=== PATIENT | female | born 1960 | race Caucasian/White ===

== ENCOUNTER 2018-02-27 13:47 | Emergency (ER) | payer OTHER ==
[2018-02-27 13:52] VITALS: BP 119/72; PULSE 88; TEMP 98.7; BMI 27.6
--- NOTE | 2018-02-27 14:26 | PDOC ---
History of Present Illness - General Chief Complaint: Pain Stated Complaint: RIGHT ARM PAIN /FELL - History of Present Illness Initial Comments: 58-year-old female presents for evaluation of right shoulder pain after a mechanical fall today at home. She has a significant past medical history of adenocarcinoma of the liver diabetes hypertension and dyslipidemia. As well as anxiety. She points to the lateral aspect of her right upper arm as the area of her discomfort. He no post injury nausea vomiting or visual changes. She did not hit her head. 02/27/18 14:24 Past History - Past Medical History Allergies/Adverse Reactions: Allergies Allergy/AdvReac Type Severity Reaction Status Date / Time No Known Allergies Allergy Verified 02/27/18 13:52 Home Medications: Ambulatory Orders Alprazolam [Xanax] 0.5 mg PO DAILY 02/27/18 Atorvastatin Ca [Lipitor] 20 mg NR DAILY 02/27/18 Canagliflozin [Invokana] 100 mg PO ASDIR 02/27/18 Dulaglutide [Trulicity] 1.5 mg SQ ASDIR 02/27/18 Mesalamine [Apriso] 0.375 gm PO ASDIR 02/27/18 Pioglitazone HCl [Actos] 30 mg PO ASDIR 02/27/18 Prochlorperazine Maleate [Compazine] 10 mg PO PRN 02/27/18 Spironolactone [Aldactone] 50 mg PO DAILY 02/27/18 - Suicide/Smoking/Psychosocial Hx Smoking History: Never smoked Have you smoked in the past 12 months: No Information on smoking cessation initiated: No Hx Alcohol Use: No Drug/Substance Use Hx: No Review of Systems - Review of Systems Musculoskeletal: Yes: See HPI, Joint Pain All Other Systems: Reviewed and Negative *Physical Exam - Vital Signs Last Vital Signs Temp Pulse Resp BP Pulse Ox 98.7 F 88 16 119/72 100 02/27/18 13:50 02/27/18 13:50 02/27/18 13:50 02/27/18 13:50 02/27/18 13:50 - Physical Exam Comments: Right shoulder skin color and temperature are normal. Range of motion is decreased. She has tenderness about the lateral aspect of the right upper arm. Right upper arm compartments are soft and nontender. She has no gross sensorimotor deficits. She is full nonpainful range of motion of the elbow in all planes as well as the wrist. 02/27/18 14:25 ED Treatment Course - RADIOLOGY Radiology Studies Ordered: Category Date Time Status SHOULDER-RIGHT [RAD] Stat Radiology 02/27/18 14:24 Ordered Medical Decision Making - Medical Decision Making By cortical fracture of the right surgical neck of humerus 02/27/18 14:43 *DC/Admit/Observation/Transfer Diagnosis at time of Disposition: Fracture of surgical neck of humerus - Discharge Dispostion Disposition: HOME Condition at time of disposition: Stable Decision to Admit order: No - Referrals Referrals: Bunny Alexander I [Primary Care Provider] - Kb Aranda MD [Staff Physician] - - Patient Instructions Printed Discharge Instructions: DI for Humeral Fracture Additional Instructions: Return to the emergency room should symptoms worsen or go unresolved. Follow-up with orthopedics in 2-3 days for further evaluation and treatment options. Keep the sling in place while at home it's probably best to sleep in a recliner chair. He may remove the sling for hygiene and to do gentle range of motion of your elbow. You may continue with Motrin if clear by her oncologist for pain control. - Post Discharge Activity
== END 2018-02-27 15:12 | disposition home or self-care (01) ==
LOC: JERFT 13:47
DX: S42.214A Unspecified nondisplaced fracture of surgical neck of right humerus, initial encounter for closed fracture (principal); W19.XXXA Unspecified fall, initial encounter; Y93.89 Activity, other specified; Y92.018 Other place in single-family (private) house as the place of occurrence of the external cause; Y99.8 Other external cause status; I10 Essential (primary) hypertension; E78.00 Pure hypercholesterolemia, unspecified; E11.9 Type 2 diabetes mellitus without complications; Z79.84 Long term (current) use of oral hypoglycemic drugs; Z85.05 Personal history of malignant neoplasm of liver
CPT/HCPCS: 73030-TC-RT-FY; 99281-25

== ENCOUNTER 2018-07-18 21:11 | Emergency (ER) | payer OTHER ==
[2018-07-18 21:29] VITALS: BMI 27.1
--- NOTE | 2018-07-18 21:41 | PDOC ---
History of Present Illness - General Chief Complaint: Syncope/Near Syncope Time Seen by Provider: 07/18/18 21:31 History Source: Patient Exam Limitations: No Limitations - History of Present Illness Initial Comments: 07/18/18 21:31 58 YOF with h/o metastatic liver adenocarcinoma with port in place RUCW, last chemo was in the beginning of June, HTN, HLD, and NIDDM, who p/w pre- syncopal episode at home this afternoon in the setting of worsening malaise, generalized weakness, JEAN, jaundice, constipation, dark tarry stool, and abdominal distention/discomfort for the past week. The notes the patient was climbing stairs at home this evening, became SOB after only 3 steps , and at the top of the steps she became very lightheaded, woozy, imbalanced, and the had to "slap her awake." She feels cold but denies fever, no vomiting, diarrhea, grossly bloody stool, altered mental status, or other symptoms. Gets all of her care at [facility] normally, last saw her doctors last week before the onset of these symptoms. On discussion with the patient and family, she [facility] that she wants to be DNR/DNI. They specify the patient would not want CPR, intubation, tracheostomy, chest tube, CVC, or other serious interventions. She would accept some treatments like blood transfusion and antibiotics. Past History - Past Medical History Allergies/Adverse Reactions: Allergies Allergy/AdvReac Type Severity Reaction Status Date / Time No Known Allergies Allergy Verified 07/18/18 21:29 Home Medications: Ambulatory Orders Alprazolam [Xanax] 0.5 mg PO DAILY 02/27/18 Atorvastatin Ca [Lipitor] 20 mg NR DAILY 02/27/18 Canagliflozin [Invokana] 100 mg PO ASDIR 02/27/18 Dulaglutide [Trulicity] 1.5 mg SQ ASDIR 02/27/18 Mesalamine [Apriso] 0.375 gm PO ASDIR 02/27/18 Pioglitazone HCl [Actos] 30 mg PO ASDIR 02/27/18 Prochlorperazine Maleate [Compazine] 10 mg PO PRN 02/27/18 Spironolactone [Aldactone] 50 mg PO DAILY 02/27/18 - Suicide/Smoking/Psychosocial Hx Smoking History: Never smoked Have you smoked in the past 12 months: No Information on smoking cessation initiated: No Hx Alcohol Use: No Drug/Substance Use Hx: No Review of Systems - Review of Systems Able to Perform ROS?: Yes Comments:: 07/18/18 21:35 GEN: chills, malaise, generalized weakness, decreased appetite, no fever, or weight change HEENT: no ear pain, sore throat, vision change, or eye pain CV: pre-syncope, lightheadedness, no chest pain, palpitations, or edema RESP: SOB, no cough, or wheezing GI: abdominal discomfort, constipation, black tarry stool, nausea, vomiting, diarrhea, white or bloody stool : no dysuria, hematuria, incontinence, retention, bleeding, or discharge MSK: no neck/back pain, muscle weakness/pain, or joint swelling/pain NEURO: no headache, seizure, vertigo, numbness, tingling, or focal weakness PSYCH: no substance use, no behavior change SKIN: jaundice, no rash ROS otherwise negative except as noted in HPI *Physical Exam - Vital Signs Last Vital Signs Temp Pulse Resp BP Pulse Ox 96.2 F L 89 15 98/64 98 07/18/18 21:11 07/18/18 21:11 07/18/18 21:11 07/18/18 21:11 07/18/18 21:11 - Physical Exam Comments: 07/18/18 22:29 GENERAL: chronically ill-appearing, A/Ox4, no distress, answers questions appropriately HEENT: moderate scleral icterus, moderate jaundice diffusely, PERRLA, EOMI, moist mucous membranes, hair loss noted NECK/BACK: no midline ttp, no spinal stepoff or deformity, no hematoma, full ROM , neck supple CHEST WALL: power-port in place RUCW CARDIOVASCULAR: regular rate/rhythm, normal S1S2, no MGR, strong peripheral pulses, capillary refill 5 seconds, extremities are cool LUNGS/RESPIRATORY: no respiratory distress, CTAB GI/ABDOMEN: mildly distended, symmetric [id number], normoactive BS, no focal ttp, no midline pulsatile masses RECTAL: small external hemorrhoid which is not thrombosed, small amount of black tarry stool in the rectal vault : no CVA tenderness EXTREMITIES: no muscle atrophy, no acute deformity, mild BLE non-pitting edema SKIN: warm and dry, no pallor, no rash, no skin breakdown, no cuts, no lesions NEUROLOGICAL: no asterixis, GCS 15, CN II-XII grossly intact, 5/5 strength proximally and distally, no facial droop Moderate Sedation - Procedure Monitoring Vital Signs: Procedure Monitoring Vital Signs Temperature 96.2 F L 07/18/18 21:11 Pulse Rate 89 07/18/18 21:11 Respiratory Rate 15 07/18/18 21:11 Blood Pressure 98/64 07/18/18 21:11 O2 Sat by Pulse Oximetry (%) 98 07/18/18 21:11 ED Treatment Course - LABORATORY CBC & Chemistry Diagram: 07/18/18 22:46 07/18/18 22:46 Medical Decision Making - Medical Decision Making 07/18/18 21:34 Presyncope: Adult female Pt p/w abrupt transient near-LOC with, followed by spontaneous recovery, consistent with presyncope. Initial Vital Signs Temp Pulse Resp BP Pulse Ox 96.2 F L 89 15 98/64 98 07/18/18 21:11 07/18/18 21:11 07/18/18 21:11 07/18/18 21:11 07/18/18 21:11 Rectal temp is 94.3 Exam: As noted in Physical Exam section. DDX IBNLT: sepsis (most likely UTI or PNA), UGIB, anemia, heart failure, ACS, PE , etc. W/U ordered: EKG CXR Sepsis Order Set FOBT TX ordered: gentle IVF, O2, Antonio hugger EKG: Reviewed; results as noted in ECG Review section. CXR: Nothing acute The patient and family wish to fill out DNR/DNI paperwork. The patient is of sound mental status and has decision making capacity. After long discussion with patient and family, we fill out DNR/DNI paperwork. The paperwork also specifies she does not want I am placing an order for DNR code status. Laboratory Tests 07/18/18 07/18/18 07/18/18 22:05 22:44 22:46 WBC 18.5 H RBC 2.19 L Hgb 6.3 L* Hct 20.0 L MCV 91.2 MCH 28.7 MCHC 31.5 L RDW 18.6 H Plt Count 286 MPV 8.4 Absolute Neuts (auto) 16.5 H Neutrophils % 88.9 H Neutrophils % (Manual) 89.0 H Band Neutrophils % 0.0 Lymphocytes % 6.8 L Lymphocytes % (Manual) 3.0 L Monocytes % 3.6 L Monocytes % (Manual) 4 Eosinophils % 0.1 Eosinophils % (Manual) 0.0 Basophils % 0.6 Basophils % (Manual) 0.0 Myelocytes % (Man) 2 Nucleated RBC % 1 H Metamyelocytes 2 Hypochromia 2+ Microcytosis 2+ PT with INR INR PTT (Actin FS) VBG pH POC VBG pCO2 POC VBG pO2 Mixed VBG HCO3 Sodium Potassium Chloride Carbon Dioxide Anion Gap BUN Creatinine Creat Clearance w eGFR Random Glucose Lactic Acid 5.3 H* Calcium Phosphorus Magnesium Total Bilirubin AST ALT Alkaline Phosphatase Creatine Kinase CK-MB (CK-2) Troponin I B-Natriuretic Peptide Total Protein Albumin Lipase Urine Color Urine Appearance Urine pH Ur Specific [place] Urine Protein Urine Glucose (UA) Urine Ketones Urine Blood Urine Nitrite Urine Bilirubin Urine Urobilinogen Ur Leukocyte Esterase Urine WBC (Auto) Urine RBC (Auto) Urine Mucus Stool Occult Blood Positive Influenza A (Rapid) Influenza B (Rapid) Blood Type Antibody Screen Crossmatch 07/18/18 07/18/18 07/18/18 22:46 22:46 22:46 WBC RBC Hgb Hct MCV MCH MCHC RDW Plt Count MPV Absolute Neuts (auto) Neutrophils % Neutrophils % (Manual) Band Neutrophils % Lymphocytes % Lymphocytes % (Manual) Monocytes % Monocytes % (Manual) Eosinophils % Eosinophils % (Manual) Basophils % Basophils % (Manual) Myelocytes % (Man) Nucleated RBC % Metamyelocytes Hypochromia Microcytosis PT with INR 34.00 H INR 2.85 H PTT (Actin FS) 32.0 VBG pH 7.21 L* POC VBG pCO2 32.5 L POC VBG pO2 23.7 L Mixed VBG HCO3 12.4 L* Sodium 120 L Potassium 5.9 H Chloride 87 L Carbon Dioxide 13 L Anion Gap 20 H BUN 158 H* Creatinine 6.2 H Creat Clearance w eGFR 6.98 Random Glucose 313 H* Lactic Acid Calcium 8.0 L Phosphorus Magnesium Total Bilirubin 7.5 H AST 959 H ALT 295 H Alkaline Phosphatase > 1000 H Creatine Kinase 279 H CK-MB (CK-2) 3.4 Troponin I B-Natriuretic Peptide Total Protein 5.8 L Albumin 1.5 L Lipase Urine Color Urine Appearance Urine pH Ur Specific [place] Urine Protein Urine Glucose (UA) Urine Ketones Urine Blood Urine Nitrite Urine Bilirubin Urine Urobilinogen Ur Leukocyte Esterase Urine WBC (Auto) Urine RBC (Auto) Urine Mucus Stool Occult Blood Influenza A (Rapid) Influenza B (Rapid) Blood Type Antibody Screen Crossmatch 07/18/18 07/18/18 07/18/18 22:46 22:46 22:46 WBC RBC Hgb Hct MCV MCH MCHC RDW Plt Count MPV Absolute Neuts (auto) Neutrophils % Neutrophils % (Manual) Band Neutrophils % Lymphocytes % Lymphocytes % (Manual) Monocytes % Monocytes % (Manual) Eosinophils % Eosinophils % (Manual) Basophils % Basophils % (Manual) Myelocytes % (Man) Nucleated RBC % Metamyelocytes Hypochromia Microcytosis PT with INR INR PTT (Actin FS) VBG pH POC VBG pCO2 POC VBG pO2 Mixed VBG HCO3 Sodium Potassium Chloride Carbon Dioxide Anion Gap BUN Creatinine Creat Clearance w eGFR Random Glucose Lactic Acid Calcium Phosphorus 7.0 H Magnesium 2.8 H Total Bilirubin AST ALT Alkaline Phosphatase Creatine Kinase CK-MB (CK-2) Troponin I < 0.02 B-Natriuretic Peptide Total Protein Albumin Lipase Urine Color Urine Appearance Urine pH Ur Specific [place] Urine Protein Urine Glucose (UA) Urine Ketones Urine Blood Urine Nitrite Urine Bilirubin Urine Urobilinogen Ur Leukocyte Esterase Urine WBC (Auto) Urine RBC (Auto) Urine Mucus Stool Occult Blood Influenza A (Rapid) Influenza B (Rapid) Blood Type O POSITIVE Antibody Screen Negative Crossmatch See Detail 07/18/18 07/18/18 07/18/18 22:46 22:46 22:46 WBC RBC Hgb Hct MCV MCH MCHC RDW Plt Count MPV Absolute Neuts (auto) Neutrophils % Neutrophils % (Manual) Band Neutrophils % Lymphocytes % Lymphocytes % (Manual) Monocytes % Monocytes % (Manual) Eosinophils % Eosinophils % (Manual) Basophils % Basophils % (Manual) Myelocytes % (Man) Nucleated RBC % Metamyelocytes Hypochromia Microcytosis PT with INR INR PTT (Actin FS) VBG pH POC VBG pCO2 POC VBG pO2 Mixed VBG HCO3 Sodium Potassium Chloride Carbon Dioxide Anion Gap BUN Creatinine Creat Clearance w eGFR Random Glucose Lactic Acid Calcium Phosphorus Magnesium Total Bilirubin AST ALT Alkaline Phosphatase Creatine Kinase CK-MB (CK-2) 3.2 Troponin I B-Natriuretic Peptide 798.1 H Total Protein Albumin Lipase 221 Urine Color Urine Appearance Urine pH Ur Specific [place] Urine Protein Urine Glucose (UA) Urine Ketones Urine Blood Urine Nitrite Urine Bilirubin Urine Urobilinogen Ur Leukocyte Esterase Urine WBC (Auto) Urine RBC (Auto) Urine Mucus Stool Occult Blood Influenza A (Rapid) Influenza B (Rapid) Blood Type Antibody Screen Crossmatch 07/18/18 07/19/18 23:30 00:10 WBC RBC Hgb Hct MCV MCH MCHC RDW Plt Count MPV Absolute Neuts (auto) Neutrophils % Neutrophils % (Manual) Band Neutrophils % Lymphocytes % Lymphocytes % (Manual) Monocytes % Monocytes % (Manual) Eosinophils % Eosinophils % (Manual) Basophils % Basophils % (Manual) Myelocytes % (Man) Nucleated RBC % Metamyelocytes Hypochromia Microcytosis PT with INR INR PTT (Actin FS) VBG pH POC VBG pCO2 POC VBG pO2 Mixed VBG HCO3 Sodium Potassium Chloride Carbon Dioxide Anion Gap BUN Creatinine Creat Clearance w eGFR Random Glucose Lactic Acid Calcium Phosphorus Magnesium Total Bilirubin AST ALT Alkaline Phosphatase Creatine Kinase CK-MB (CK-2) Troponin I B-Natriuretic Peptide Total Protein Albumin Lipase Urine Color Michelle Urine Appearance Turbid Urine pH 5.0 Ur Specific [place] 1.012 Urine Protein 2+ H Urine Glucose (UA) 3+ H Urine Ketones Negative Urine Blood 3+ H Urine Nitrite Negative Urine Bilirubin Negative Urine Urobilinogen Negative Ur Leukocyte Esterase Trace Urine WBC (Auto) 128 Urine RBC (Auto) 398 Urine Mucus Rare Stool Occult Blood Influenza A (Rapid) Negative Influenza B (Rapid) Negative Blood Type Antibody Screen Crossmatch Reassessment: Patient states has some right sided abdominal pain. 07/19/18 00:53 I have placed orders for another 2 mg Morphine (patient in pain again). Also have placed orders for D50 1 amp, insulin, and bicarb for hyperkalemia. A second 500cc NS bag is running; patient's pressure is 84/52. 07/19/18 01:09 I spoke with ICU triage fellow Roxana Coleman, [phone]. He will contact their stepdown unit and see if there are beds. We will continue to resuscitate and give the pRBCs. I have called blood bank to ensure order is being processed. 07/19/18 01:20 I spoke again with Dr. Coleman. Stepdown unit accepts in transfer to attending Rita Mcelroy Patient will got to [address] Step[address] unit. 07/19/18 03:03 Blood is transfusing, Chan has been placed, no UOP from Chan, position verified with [facility]. *DC/Admit/Observation/Transfer Diagnosis at time of Disposition: Severe sepsis, Hyperkalemia, Hyponatremia, Metastatic cancer to liver GI bleed Qualifiers: GI bleed type/associated pathology: melena Qualified Code(s): K92.1 - Melena Anemia Qualifiers: Anemia type: unspecified type Qualified Code(s): D64.9 - Anemia, unspecified - Discharge Dispostion Disposition: TRANSFER ACUTE CARE/OTHER HOSP Condition at time of disposition: Guarded - Referrals Referrals: Bunny Alexander I [Primary Care Provider] - - Patient Instructions - Post Discharge Activity - Transfer to Acute Care Facility Receiving Facility: [facility] Accepting Physician:: Rita Monahan Transfer comment: [address] [place] [address] Stepdown Unit, Kiara
[2018-07-18] MEDS ORDERED: SODIUM CHLORIDE 0.9% 500 ML INFUS.BAG IV ONE (22:35)
[2018-07-18] MEDS ORDERED: MORPHINE SULFATE 2 MG/ML VIAL ONE (22:43)
[2018-07-18] MEDS ORDERED: morphine CARPU-JECT 4 MG/1 ML DISP.SYRIN IVPUSH ONE (22:49)
[2018-07-18 23:04] LABS: BASO % 0.6 % (0-2.0); EOS % 0.1 % (0-4.5); LYMPH % 6.8 % (8-40); MCH 28.7 pg (25.7-33.7); MCHC 31.5 g/dl (32.0-36.0); MEAN CELL VOLUME 91.2 fl (80-96); MEAN PLT VOLUME 8.4 fl (7.5-11.1); MONO % 3.6 % (3.8-10.2); NEUT % 88.9 % (42.8-82.8); PLATELET COUNT 286 K/MM3 (134-434); RBC 2.19 M/mm3 (3.60-5.2); RDW 18.6 % (11.6-15.6); WHITE BLOOD COUNT 18.5 K/mm3 (4.0-10.0)
[2018-07-18 23:05] LABS: VENOUS PC02 32.5 mmHg (38-52); VENOUS PO2 23.7 mmHg (28-48)
[2018-07-18 23:08] LABS: VENOUS PH 7.21 (7.32-7.42)
[2018-07-18 23:12] LABS: HEMOGLOBIN 6.3 GM/dL (10.7-15.3)
[2018-07-18 23:20] LABS: INR 2.85 (0.83-1.09)
[2018-07-18 23:37] LABS: MAGNESIUM 2.8 mg/dL (1.8-2.4)
[2018-07-18 23:54] LABS: ALBUMIN 1.5 g/dl (3.4-5.0); ALK PHOS > 1000 U/L (45-117); ANION GAP 20 MMOL/L (8-16); BILIRUBIN,TOTAL 7.5 mg/dL (0.2-1); CHLORIDE 87 mmol/L (98-107); CO2 13 mmol/L (21-32); CREATININE 6.2 mg/dL (0.55-1.3); POTASSIUM 5.9 mmol/L (3.5-5.1); SGOT/AST 959 U/L (15-37); SGPT/ALT 295 U/L (13-61); SODIUM 120 mmol/L (136-145); TOT PROT 5.8 g/dl (6.4-8.2)
[2018-07-19 00:05] LABS: GLUCOSE,RANDOM 313 mg/dL (74-106)
[2018-07-19 00:06] LABS: BLOOD UREA NITROGEN 158 mg/dL (7-18)
[2018-07-19] MEDS ORDERED: SODIUM CHLORIDE 0.9% 500 ML INFUS.BAG IV ONE ×2 (00:18→01:37)
[2018-07-19] MEDS ORDERED: PIPERACILLIN/TAZOB 4.5 GM 4.5 GM in DEXTROSE 5%-WATER 100 ML IVPB ONE (00:18)
[2018-07-19 00:38] LABS: URINE APPEARANCE TURBID; URINE BILIRUBIN NEGATIVE (<2.0 mg/dL); URINE COLOR AMBER; URINE GLUCOSE (UA) 3+ (NEGATIVE); URINE KETONE NEGATIVE (NEGATIVE); URINE LEUK ESTERASE TRACE (NEGATIVE); URINE NITRITE NEGATIVE (NEGATIVE); URINE PROTEIN 2+ (NEGATIVE); URINE UROBILINOGEN NEGATIVE mg/dL (0.2-1.0)
[2018-07-19] MEDS ORDERED: morphine CARPU-JECT 2 MG/1 ML DISP.SYRIN IVPUSH ONE (00:49)
[2018-07-19 00:51] LABS: URINE MUCUS RARE
[2018-07-19] MEDS ORDERED: SODIUM BICARBONATE 8.4% 50 MEQ/50 ML DISP.SYRIN IVPUSH ONE (00:51)
[2018-07-19] MEDS ORDERED: DEXTROSE 50%-WATER - 25 GM/50 ML VIAL IVPUSH ONE (00:51)
[2018-07-19] MEDS ORDERED: INSULIN REGULAR HUMAN 100 UNITS/ML *VIAL IVPUSH ONE (00:51)
--- NOTE | 2018-07-19 01:14 | PDOC ---
Attending Attestation - HPI HPI: 07/19/18 01:14 The patient is a 58 year old female with a significant PMH of liver CA (last chemo was 2 weeks ago), colitis, and recent blood transfusion for anemia 2/2 chemotherapy who presents to the emergency department with increasing dyspnea on exertion today. Patient states that when she was going up the stairs she felt short of breath and thought she was going to pass out. Patient denies any head trauma. The patient denies chest pain, headache and dizziness. Denies fever, chills, nausea, vomit, diarrhea and constipation. Denies dysuria, frequency, urgency and hematuria. Allergies: NKA Past surgical history: Port in place. Social history: No reported alcohol, drug or cigarette use. PCP: Dr. Alexander <Vane Bravo - Last Filed: 07/19/18 01:14> - Resident Resident Name: GonzalesCarmen - Physicial Exam PE: 07/19/18 01:06 GENERAL: Awake, in mild distress secondary to pain HEAD: No signs of trauma EYES: PERRLA, EOMI, sclera icterus present, conjunctiva clear, visual acuity grossly intact ENT: Auricles normal inspection, hearing grossly normal, nares patent, oropharynx clear without exudates. Moist mucosa NECK: Normal ROM, supple, no lymphadenopathy, JVD, or masses LUNGS: Breath sounds equal, clear to auscultation bilaterally. No wheezes, and no crackles. Normal work of breathing. HEART: Regular rate and rhythm, normal S1 and S2, no murmurs, rubs or gallops ABDOMEN: Soft, mild generalized tenderness, mild distention CHEST WALL: BACK: No midline tenderness. EXTREMITIES: Normal range of motion, 1+ pitting edema. No clubbing or cyanosis. No erythema, or tenderness NEUROLOGICAL: Alert, and fully oriented x4, SKIN: Warm, Dry, normal turgor, no rashes or lesions noted. - Critical Care Time Total Critical Care Time: 60 Critical Care Statement: The care of this patient involved high complexity decision making to prevent further life threatening deterioration of the patient 's condition and/or to evaluate & treat vital organ system(s) failure or risk of failure. - Medical Decision Making 07/19/18 01:08 58-year-old female with metastatic adenocarcinoma now with increasing weakness and near syncopal episode. Patient was hypothermic with labs consistent with acute kidney injury and possible sepsis. Zosyn 3.375 mg given in the emergency department. Plan at this time is for possible transfer to [facility] at the patient 's request. Blood transfusion and IV fluid replacement will continue as well. Impression acute kidney injury. Sepsis. Metastatic adenocarcinoma <Angela Golden - Last Filed: 07/19/18 01:15>
[2018-07-19] MEDS ORDERED: ONDANSETRON 4 MG/2 ML VIAL IVPUSH ONE (01:50)
[2018-07-19] MEDS ORDERED: SODIUM BICARBONATE 8.4% - 50 ML ONE (01:57)
[2018-07-19] MEDS ORDERED: DEXTROSE 50%-WATER 25 GM/50 ML DISP.SYRIN ONE (01:57)
[2018-07-19] MEDS ORDERED: PIPERACILLIN/TAZOB 4.5 GM 4.5 GM/100 ML BAG IVPB ONE (01:57)
[2018-07-19] MEDS ORDERED: ONDANSETRON 4 MG/2 ML VIAL ONE (01:59)
[2018-07-19] MEDS ORDERED: INSULIN REGULAR HUMAN 100 UNITS/ML *VIAL ONE (02:00)
[2018-07-19 04:44] VITALS: BP 94/44
[2018-07-19 05:42] VITALS: PULSE 82; TEMP 97.1
--- NOTE | 2018-07-19 18:12 | EKG ---
Test Reason : Blood Pressure : / mmHG Vent. Rate : 086 BPM Atrial Rate : 086 BPM P-R Int : 160 ms QRS Dur : 100 ms QT Int : 372 ms P-R-T Axes : 047 006 048 degrees QTc Int : 445 ms NORMAL SINUS RHYTHM NORMAL ECG Confirmed by MD MIRIAN, CHAI ([id number]) on 07/19/2018 6:12:00 PM Referred By: Confirmed By:CHAI VELA MD
== END 2018-07-19 06:13 | disposition short-term general hospital (02) ==
LOC: JER 21:11
PROC: 3E03329 Introduction of Other Anti-infective into Peripheral Vein, Percutaneous Approach (ICD-10-PCS; principal; 2018-07-18)
PROC: 3E033NZ Introduction of Analgesics, Hypnotics, Sedatives into Peripheral Vein, Percutaneous Approach (ICD-10-PCS; 2018-07-18)
PROC: 3E033NZ Introduction of Analgesics, Hypnotics, Sedatives into Peripheral Vein, Percutaneous Approach (ICD-10-PCS; 2018-07-18)
PROC: 3E033VG Introduction of Insulin into Peripheral Vein, Percutaneous Approach (ICD-10-PCS; 2018-07-18)
PROC: 3E033GC Introduction of Other Therapeutic Substance into Peripheral Vein, Percutaneous Approach (ICD-10-PCS; 2018-07-18)
PROC: 3E033GC Introduction of Other Therapeutic Substance into Peripheral Vein, Percutaneous Approach (ICD-10-PCS; 2018-07-18)
PROC: 0T9B70Z Drainage of Bladder with Drainage Device, Via Natural or Artificial Opening (ICD-10-PCS; 2018-07-18)
PROC: 30233N1 Transfusion of Nonautologous Red Blood Cells into Peripheral Vein, Percutaneous Approach (ICD-10-PCS; 2018-07-18)
PROC: BT40ZZZ Ultrasonography of Bladder (ICD-10-PCS; 2018-07-18)
DX: A41.9 Sepsis, unspecified organism (principal); C22.8 Malignant neoplasm of liver, primary, unspecified as to type; N17.9 Acute kidney failure, unspecified; E87.5 Hyperkalemia; E87.1 Hypo-osmolality and hyponatremia; D64.9 Anemia, unspecified; K92.1 Melena; I10 Essential (primary) hypertension; E11.65 Type 2 diabetes mellitus with hyperglycemia; E78.5 Hyperlipidemia, unspecified
CPT/HCPCS: 36415; 36430; 36511; 71045-TC-FY; 80053; 81003; 81015; 82272; 82550; 82553; 82803; 83605; 83690; 83735; 83880; 84100; 84484; 85025; 85610; 85730; 86850; 86900; 86901; 86922; 87040; 87086; 87804; 93005; 93010; 99285-25; P9038; P9058